=== PATIENT | female | born 1975 | race Caucasian/White ===

== ENCOUNTER 2016-11-24 18:12 | Emergency (ER) | payer SELFPAY ==
--- NOTE | 2016-11-24 18:26 | PDOC ---
Rapid Medical Evaluation Time Seen by Provider: 11/24/16 18:24 Medical Evaluation: Allergies Allergy/AdvReac Type Severity Reaction Status Date / Time shellfish derived Allergy Verified 11/24/16 18:24 11/24/16 18:25 I have performed a brief in-person evaluation of this patient. The patient presents with a chief complaint of: laceration to rt 5th digit Pertinent physical exam findings: Full rom of 5th digit. unsure of last tdap I have ordered the following: tdap The patient will proceed to fast track for further evaluation.
[2016-11-24] MEDS ORDERED: DIPHTH,PERTUSS(ACELL),TET 0.5 ML DISP.SYRIN IM ONE (18:27)
[2016-11-24 18:30] VITALS: BP 111/71; PULSE 70; TEMP 97.7; BMI 29.2
--- NOTE | 2016-11-24 19:39 | PDOC ---
History of Present Illness - General Chief Complaint: Laceration Stated Complaint: LACERATION Time Seen by Provider: 11/24/16 18:24 - History of Present Illness Initial Comments: 11/24/16 19:33 CHIEF COMPLAINT: cut to R hand HISTORY OF PRESENT ILLNESS: 41 yo F with no PMH presents to fast track with cut to right 5th finger just prior to arrival. Patient states she was washing dishes when she put her hand in a glass and it broke on her. She states that did not see if the glass shattered, she just pulled her hand away. She does not remember the last time she had a tetanus shot. PAST MEDICAL HISTORY: Denies past medical history FAMILY HISTORY: Denies SOCIAL HISTORY: Denies tobacco, alcohol, illicit drug use. SURGICAL HISTORY: Denies ALLERGIES: shellfish REVIEW OF SYSTEMS General/Constitutional: Denies fever or chills. Gastrointestinal: Denies nausea, vomiting, diarrhea. Musculoskeletal: Denies joint or muscle swelling or pain. Skin and breasts: Cut to R hand. Denies rash or easy bruising. Neurologic: Denies headache, vertigo, loss of consciousness, or loss of sensation. PHYSICAL EXAM General Appearance: Well-appearing, appropriately dressed. No apparent distress. HEENT: EOMI, PERRLA,normal voice. No conjunctival pallor. No photophobia, scleral icterus. Neck: Supple. Trachea midline. No tenderness, rigidity, carotid bruit, stridor , lymphadenopathy, or thyromegaly. Respiratory/Chest: Lungs CTAB. Cardiovascular: RRR. S1, S2. Musculoskeletal/Extremities: See integumentary. Normal inspection. FROM of all extremities, normal capillary refill. Pelvis Stable. No CVA tenderness. No tenderness to extremities, pedal edema, swelling, erythema or deformity. Integumentary: Cut to dorsal aspect of right fifth digit proximal to MCP. Neurovascularly intact, normal cap refill. No tendon involvement, full ROM. Appropriate color, dry, warm. No cyanosis, erythema, jaundice or rash Neurologic: braker passenger train II-XII intact. Fully oriented, alert. Appropriate mood/affect. Motor strength 5/5. No appreciable EOM palsy, facial droop or sensory deficit. Past History - Past Medical History Allergies/Adverse Reactions: Allergies Allergy/AdvReac Type Severity Reaction Status Date / Time shellfish derived Allergy Verified 11/24/16 18:24 Home Medications: Ambulatory Orders No Home Medications 0 dose .ROUTE UTDICT 06/20/12 Other medical history: none - Immunization History Td Vaccination: No TDAP Vaccination: No Immunization Up to Date: Yes - Psycho/Social/Smoking Cessation Hx Anxiety: No Suicidal Ideation: No Smoking Status: No Smoking History: Never smoked Have you smoked in the past 12 months: No Number of Cigarettes Smoked Daily: 0 Information on smoking cessation initiated: No Hx Alcohol Use: No Drug/Substance Use Hx: No Substance Use Type: None *Physical Exam - Vital Signs Last Vital Signs Temp Pulse Resp BP Pulse Ox 97.7 F 70 18 111/71 100 11/24/16 18:25 11/24/16 18:25 11/24/16 18:25 11/24/16 18:25 11/24/16 18:25 Procedures - Consent Consent obtained: Verbal - Laceration/Wound Repair Right Dorsal Hand Wound Length: to 2.5 cm Wound Explored: clean, no foreign body present Wound's Depth, Shape: irregular, flap Irrigated w/ Saline: Yes Betadine Prep: Yes Anesthesia: 1% Lidocaine Amount of Anesthetic (ccs): 3 Wound Repaired With: Sutures Suture Size/Type: 5:0 Number of Sutures: 6 Layer Closure: No Sterile Dressing Applied: Yes (xeroform dressing, kerlex bandage) ED Treatment Course - Medications Given in the ED: ED Medications Discontinued Medications Generic Name Dose Route Start Last Admin Trade Name Freq PRN Reason Stop Dose Admin Diphtheria/Tetanus/Acell Pertussis 0.5 ml 11/24/16 18:27 11/24/16 18:55 Boostrix - IM 11/24/16 18:28 0.5 ml .ONCE ONE Administration Medical Decision Making - Medical Decision Making 11/24/16 19:37 41 yo F with no significant PMH presents to fast track with laceration to dorsal aspect R hand proximal to 5th MCP. -Tdap ordered in [facility] Laceration repair - see procedure note. Advised patient of post lac repair care; advised patient to return in 10-14 days for suture removal. ADvised patient of signs and symptoms for return to ER ; patient verbalized understanding and agrees to plan. *DC/Admit/Observation/Transfer Diagnosis at time of Disposition: Laceration - Discharge Dispostion Disposition: HOME Condition at time of disposition: Stable - Referrals Referrals: Manda Balderrama [Primary Care Provider] - - Patient Instructions Printed Discharge Instructions: DI for Laceration Repair Additional Instructions: As discussed, please keep area of laceration clean and dry for the next 24-48 hours. Afterwards you may wash with mild soap and water. Return to fast track or your primary care doctor for suture removal in 10-14 days. If you experience any redness, swelling, streaking, warmth, to the site of the cut, or develop fever, nausea, vomiting, or diarrhea, please return to the ER.
== END 2016-11-24 19:46 | disposition home or self-care (01) ==
LOC: JERFT 18:12 → JER 18:12 → JERFT 19:46
PROC: 0JQJ0ZZ Repair Right Hand Subcutaneous Tissue and Fascia, Open Approach (ICD-10-PCS; principal; 2016-11-24)
PROC: 3E0234Z Introduction of Serum, Toxoid and Vaccine into Muscle, Percutaneous Approach (ICD-10-PCS; 2016-11-24)
DX: S61.216A Laceration without foreign body of right little finger without damage to nail, initial encounter (principal); W25.XXXA Contact with sharp glass, initial encounter; Y93.G1 Activity, food preparation and clean up; Y92.030 Kitchen in apartment as the place of occurrence of the external cause
CPT/HCPCS: 12001-25; 90471; 90715; 99281-25

== ENCOUNTER 2017-04-09 13:15 | Emergency (ER) | payer OTHER ==
[2017-04-09 13:20] VITALS: BP 100/64; PULSE 81; TEMP 98; BMI 30.2
[2017-04-09] MEDS ORDERED: ACETAMINOPHEN 325 MG TABLET (FP) PO ONE (14:05)
[2017-04-09] MEDS ORDERED: ACETAMINOPHEN 325 MG TABLET (FP) ONE (14:08)
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
== END 2017-04-09 14:50 | disposition home or self-care (01) ==
LOC: JERFT 13:15
DX: S50.02XA Contusion of left elbow, initial encounter (principal); V43.52XA Car driver injured in collision with other type car in traffic accident, initial encounter; Y92.488 Other paved roadways as the place of occurrence of the external cause; Y93.89 Activity, other specified
CPT/HCPCS: 73070-TC-LT; 99281-25

== ENCOUNTER 2019-04-16 00:15 | Emergency (ER) | payer OTHER ==
--- NOTE | 2019-04-16 01:05 | PDOC ---
History of Present Illness - General Chief Complaint: Bite Stated Complaint: CAT BITE/SCRATCH Time Seen by Provider: 04/16/19 01:05 - History of Present Illness Initial Comments: 43 year old female with no PMH presenting with multiple small wounds on her legs and hips after defending her dog against a cat who was attacking the dog. She lifted the dog above her head and the cat continued to scratch at the measurement psychologist in an attempt to get to the dog. Denies fevers, chills, significant building, nausea, vomiting, or other symptoms. 04/16/19 01:39 Past History - Past Medical History Allergies/Adverse Reactions: Allergies Allergy/AdvReac Type Severity Reaction Status Date / Time shellfish derived Allergy Verified 04/16/19 01:09 Home Medications: Ambulatory Orders No Home Medications 0 dose .ROUTE UTDICT 06/20/12 Amox-Tr/K Cl [Augmentin - 875Mg Tablet] 1 tab PO BID #9 tablet 04/16/19 - Immunization History Td Vaccination: No TDAP Vaccination: No Immunization Up to Date: Yes - Suicide/Smoking/Psychosocial Hx Smoking Status: No Smoking History: Never smoked Have you smoked in the past 12 months: No Number of Cigarettes Smoked Daily: 0 Hx Alcohol Use: No Drug/Substance Use Hx: No Substance Use Type: None Review of Systems - Review of Systems Constitutional: No: Chills, Diaphoresis, Fever, Loss of Appetite HEENTM: No: Eye Pain, Blurred Vision, Tearing Respiratory: No: Cough, Orthopnea, Shortness of Breath Cardiac (ROS): No: Chest Pain, Edema, Irregular Heart Rate ABD/GI: No: Diarrhea, Nausea, Vomiting : No: Dysuria, Discharge, Frequency Integumentary: Yes: Lesions. No: Bruising Neurological: No: Headache, Numbness, Paresthesia *Physical Exam - Physical Exam General Appearance: Yes: Nourished, Appropriately Dressed. No: Apparent Distress HEENT: positive: EOMI, BHARATHI, Normal ENT Inspection, Normal Voice Neck: positive: Trachea midline, Normal Thyroid, Supple. negative: Tender, Rigid Respiratory/Chest: positive: Lungs Clear, Normal Breath Sounds. negative: Chest Tender, Respiratory Distress, Accessory Muscle Use Cardiovascular: positive: Regular Rhythm, Regular Rate Gastrointestinal/Abdominal: positive: Normal Bowel Sounds, Flat, Soft. negative : Tender Lymphatic: negative: Adenopathy, Tenderness Musculoskeletal: positive: Normal Inspection. negative: Decreased Range of Motion Extremity: positive: Normal Capillary Refill, Normal Inspection, Normal Range of Motion. negative: Tender Integumentary: positive: Normal Color, Dry, Warm, Other (multiple small lsuperficial lacerations acrouss legs and hips conisitent with small animal scratches.) Neurologic: positive: Fully Oriented, Alert, Normal Mood/Affect, Normal Response , Motor Strength 5/5 Medical Decision Making - Medical Decision Making 43 year old female with no PMH presenting with multiple cat scratches. Tetanus uptodate and wounds irrigated. Will DC patient with wound care precautions and follow up instructions as well as Augmentin 875 BID x 5 days. 04/16/19 01:43 *DC/Admit/Observation/Transfer Diagnosis at time of Disposition: Cat scratch - Discharge Dispostion Disposition: HOME Condition at time of disposition: Improved Decision to Admit order: No - Prescriptions Prescriptions: Amox-Tr/K Cl [Augmentin - 875Mg Tablet] 1 tab PO BID #9 tablet - Referrals Referrals: Tanner Andrews MD [Primary Care Provider] - - Patient Instructions Printed Discharge Instructions: How to Care for a Domestic Animal Bite Additional Instructions: Please keep your wounds clean and dry. Do not soak in any bodies of water. Please take your antibiotics as prescribed twice daily. Please return to the ED if you have fever, worsening pain at the wounds, fluid coming out of the wounds , worsening redness, swelling, or worsening symptoms. Print Language: MAORI - Post Discharge Activity
[2019-04-16 01:09] VITALS: TEMP 98.3; BMI 29.8
[2019-04-16] MEDS ORDERED: AMOX TR/POT CLAV 875MG/125MG TABLETS (FP) PO ONE (01:38)
[2019-04-16] MEDS ORDERED: AMOX TR/POT CLAV 875MG/125MG TABLETS (FP) ONE (01:45)
--- NOTE | 2019-04-16 02:12 | PDOC ---
Documentation entered by Alissa Urbano SCRIBE, acting as scribe for Roseline Sanchez DO. Roseline Sanchez DO: This documentation has been prepared by the Yolie brantley Adrianna, SCRIBE, under my direction and personally reviewed by me in its entirety. I confirm that the documentation accurately reflects all work, treatment, procedures, and medical decision making performed by me. Attending Attestation - Resident Resident Name: [email or web address] - ED Attending Attestation I have performed the following: I have examined & evaluated the patient, The case was reviewed & discussed with the resident, I agree w/resident's findings & plan - HPI HPI: The patient is a 43 year old female, with no significant PMH, who presents to the ED for evaluation of wounds. Patient presents with multiple small cuts on bilateral hips and legs from cat scratching (patient was trying to defend her dog from the cat). Denies any other complains. Allergies: Shellfish Surgical History: None reported Social History: Denies EtOH, tobacco, or illicit drug use PCP: Dr. Andrews - Physicial Exam PE: Agree with resident exam. - Medical Decision Making 04/16/19 02:09 43-year-old female with multiple cat scratches According to patient D Cornelius have their shots and there is no concern for rabies Plan for local wound care with bacitracin, DC with Augmentin and instructions to return for signs of infection
[2019-04-16 02:21] VITALS: BP 115/82; PULSE 84
== END 2019-04-16 02:21 | disposition home or self-care (01) ==
LOC: JER 00:15
DX: S80.811A Abrasion, right lower leg, initial encounter (principal); S80.812A Abrasion, left lower leg, initial encounter; W55.03XA Scratched by cat, initial encounter; Y93.K9 Activity, other involving animal care; Y92.89 Other specified places as the place of occurrence of the external cause; Y99.8 Other external cause status
CPT/HCPCS: 99282-25

== ENCOUNTER 2022-06-06 16:23 | Emergency (ER) | payer OTHER ==
[2022-06-06 16:49] VITALS: BP 104/83; PULSE 85; RESP 16; TEMP 98.6; BMI 30.2
[2022-06-06] MEDS ORDERED: ACETAMINOPHEN 325 MG TABLET (FP) PO ONE (16:52)
[2022-06-06] MEDS ORDERED: ACETAMINOPHEN 325 MG TABLET (FP) ONE (16:57)
== END 2022-06-06 18:22 | disposition home or self-care (01) ==
LOC: FER 16:23
DX: S09.90XA Unspecified injury of head, initial encounter (principal); F07.81 Postconcussional syndrome; W22.8XXA Striking against or struck by other objects, initial encounter
CPT/HCPCS: 70450-TC; 99284-25

== ENCOUNTER 2023-08-22 22:03 | Emergency (ER) | payer OTHER ==
[2023-08-22 22:14] VITALS: BP 114/75; PULSE 80; RESP 18; TEMP 98; BMI 32.1
[2023-08-22 22:35] LABS: HEMATOCRIT 44.9 % (32.4-45.2); HEMOGLOBIN 14.9 G/dL (10.7-15.3); MCH 29.4 pg (25.7-33.7); MCHC 33.3 g/dl (32.0-36.0); MEAN CELL VOLUME 88.4 fl (80-96); MEAN PLT VOLUME 8.9 fl (7.5-11.1); PLATELET COUNT 235.9 10^3/uL (134-434); RBC 5.08 10^6/uL (3.60-5.2); RDW 13.9 % (11.6-15.6); WHITE BLOOD COUNT 9.2 10^3/uL (4.0-10.8)
[2023-08-22 22:48] LABS: PLATELET ESTIMATE ADEQUATE
[2023-08-22] MEDS ORDERED: ACETAMINOPHEN 1000 MG/100 ML BAG IVPB ONE (22:50)
[2023-08-22] MEDS ORDERED: SODIUM CHLORIDE 1,000 ML IV STA (22:50)
[2023-08-22] MEDS ORDERED: ACETAMINOPHEN INJECTION 100 ML IVPB ONE (22:51)
[2023-08-22 22:55] LABS: ALBUMIN 4.4 g/dl (3.4-5.0); BILIRUBIN,TOTAL 0.4 mg/dl (0.2-1); CALCIUM 10.2 mg/dl (8.5-10.1); CREATININE 0.8 mg/dl (0.6-1.3); POTASSIUM 4.4 mmol/L (3.5-5.1); TOT PROT 7.4 g/dl (6.4-8.2)
== END 2023-08-23 03:47 | disposition home or self-care (01) ==
LOC: FER 22:03
PROC: 3E033NZ Introduction of Analgesics, Hypnotics, Sedatives into Peripheral Vein, Percutaneous Approach (ICD-10-PCS; principal; 2023-08-22)
PROC: 3E0337Z Introduction of Electrolytic and Water Balance Substance into Peripheral Vein, Percutaneous Approach (ICD-10-PCS; 2023-08-22)
DX: R10.9 Unspecified abdominal pain (principal); K57.92 Diverticulitis of intestine, part unspecified, without perforation or abscess without bleeding
CPT/HCPCS: 36415; 74176-TC; 80053; 82550; 84484; 85027; 99284-25

== ENCOUNTER 2025-01-15 10:44 | Emergency (ER) | payer OTHER ==
[2025-01-15 12:03] VITALS: BP 108/73; PULSE 65; RESP 18; TEMP 98.2; BMI 31.1
[2025-01-15] MEDS ORDERED: DIPHTH,PERTUSS(ACELL),TET 0.5 ML DISP.SYRIN IM ONE (13:02)
[2025-01-15] MEDS: DIPHTH,PERTUSS(ACELL),TET 0.5 ML DISP.SYRIN IM ONE (13:05)
== END 2025-01-15 13:18 | disposition home or self-care (01) ==
LOC: FER 10:44
PROC: 3E0234Z Introduction of Serum, Toxoid and Vaccine into Muscle, Percutaneous Approach (ICD-10-PCS; principal; 2025-01-15)
DX: S83.91XA Sprain of unspecified site of right knee, initial encounter (principal); Z23 Encounter for immunization; W01.0XXA Fall on same level from slipping, tripping and stumbling without subsequent striking against object, initial encounter
CPT/HCPCS: 73562-TC-LT-FY; 73562-TC-RT-FY; 90471; 90715; 99284-25

== ENCOUNTER 2025-02-26 21:45 | Emergency (ER) | payer OTHER ==
[2025-02-26 22:02] VITALS: BP 121/72; PULSE 81; RESP 16; TEMP 98.8; BMI 31.1
[2025-02-26] MEDS ORDERED: ONDANSETRON 4 MG/2 ML VIAL ONE (22:37)
[2025-02-26] MEDS ORDERED: KETOROLAC TROMETHAMINE 30 MG/1 ML VIAL ONE (22:37)
[2025-02-26] MEDS: SODIUM CHLORIDE 1,000 ML IV ONE (22:41)
[2025-02-26] MEDS: KETOROLAC TROMETHAMINE 30 MG/1 ML VIAL IVPUSH ONE (22:41)
[2025-02-26 22:42] LABS: ABSOLUTE IMMATURE GRANULOCYTES 0.03 x10^3/uL (0.0-0.031); BASOPHILS # 0.05 x10^3/uL (0.01-0.08); EOSINOPHIL % 0.6 % (0.7-5.8); EOSINOPHILS # 0.09 x10^3/uL (0.04-0.36); HEMOGLOBIN 14.8 g/dL (11.2-15.7); MCHC 33.6 g/dl (32.2-35.5); MEAN PLT VOLUME 10.2 fl (9.4-12.3); MONOCYTE # 0.93 x10^3/uL (0.24-0.86); MONOCYTE % 6.6 % (4.7-12.5); PLATELET COUNT 266 x10^3/uL (182-369); RDW 12.6 % (12.3-16.6)
[2025-02-26] MEDS: ONDANSETRON 4 MG/2 ML VIAL IVPUSH ONE (22:42)
[2025-02-26 23:08] LABS: ALBUMIN 4.5 g/dl (3.4-5.0); BILIRUBIN,TOTAL 0.7 mg/dl (0.2-1); CALCIUM 9.8 mg/dl (8.5-10.1); CREATININE 0.6 mg/dl (0.6-1.3); TOT PROT 7.3 g/dl (6.4-8.2)
[2025-02-27] MEDS ORDERED: CIPROFLOXACIN 400 MG/D5W 400 MG/200 ML IVPB IVPB ONE (01:00)
[2025-02-27] MEDS: CIPROFLOXACIN 400 MG/D5W 400 MG/200 ML IVPB IVPB ONE (01:22)
[2025-02-27 20:23] LABS: HCV DIAGNOSTIC IN-HOUSE W/RFLX NON-REACTIVE (NONREACTIVE); HIV INTERPRETATION NEGATIVE (NEGATIVE)
== END 2025-02-27 02:23 | disposition home or self-care (01) ==
LOC: FER 21:45
PROC: 3E03329 Introduction of Other Anti-infective into Peripheral Vein, Percutaneous Approach (ICD-10-PCS; principal; 2025-02-26)
PROC: 3E03329 Introduction of Other Anti-infective into Peripheral Vein, Percutaneous Approach (ICD-10-PCS; 2025-02-26)
PROC: 3E0333Z Introduction of Anti-inflammatory into Peripheral Vein, Percutaneous Approach (ICD-10-PCS; 2025-02-26)
PROC: 3E033GC Introduction of Other Therapeutic Substance into Peripheral Vein, Percutaneous Approach (ICD-10-PCS; 2025-02-26)
PROC: 3E0337Z Introduction of Electrolytic and Water Balance Substance into Peripheral Vein, Percutaneous Approach (ICD-10-PCS; 2025-02-26)
DX: K57.32 Diverticulitis of large intestine without perforation or abscess without bleeding (principal); R10.30 Lower abdominal pain, unspecified; R11.0 Nausea
CPT/HCPCS: 36415; 74176-TC; 80053; 81003; 81015; 83605; 83735; 84703; 85025; 86803; 87086; 87389; 99285-25